=== PATIENT | female | born 1970 | race Caucasian/White ===

== ENCOUNTER 2021-06-19 15:32 | Emergency (ER) | payer BC, OTHER ==
[~2021-06-19] VITALS: Ht 157.5 cm; Wt 56.5 kg
[~2021-06-19 15:32] MED LIST: ALLEGRA 180MG180 MG PO; ALLEGRA ODT30 MG PO; ASTELIN NASAL S34 ML; CLARITIN 1010 MG/TAB PO; PREDNISONE20 MG PO; PRINZIDE 12.5 M1 TA1 PO; QBRELIS1 MG/1 ML PO; SINGULAIR 110 MG/TAB PO; VALTREX 50500 MG/TAB PO; ZOFRAN ODT4 MG PO
[2021-06-19 15:36] VITALS: TEMP 97.9
[2021-06-19 16:28] LABS: ALANINE AMINOTRANSFERASE 21 U/L (0-55); ALBUMIN 3.7 gm/dL (3.5-5.0); ALKALINE PHOSPHATASE 64 U/L (0-750); ANION GAP 11 mmol/L; AST,SGOT 22 U/L (5-34); BILIRUBIN,TOTAL 0.4 mg/dL (0.2-1.2); BLOOD UREA NITROGEN 13 mg/dL (7-19); CALCIUM 8.7 mg/dL (8.4-10.2); CARBON DIOXIDE 24 mEq/L (22-29); CHLORIDE 106 mmol/L (98-107); CREATININE, serum 0.65 mg/dL (0.57-1.11); GLUCOSE 106 mg/dL (70-99); POTASSIUM 3.2 mmol/L (3.5-4.5); SODIUM 141 mmol/L (136-145)
[2021-06-19 16:34] LABS: TROPONIN-I < 0.010 ng/mL (0.00-0.033)
[2021-06-19 17:05] LABS: COLLECTION METHOD CLEAN CATCH
[2021-06-19 17:14] LABS: BASO % 0.4 % (0.0-2.0); EOS # 0.1 (0.0-0.7); EOS % 0.7 % (0-4.0); GRAN # 4.9 (1.4-6.5); GRAN % 57.7 % (42.2-75.2); HEMATOCRIT 37.2 % (37.0-47.0); HEMOGLOBIN 12.3 g/dl (12.5-16.0); LYMPH # 2.9 (1.2-3.4); LYMPH % 33.9 % (20.0-51.0); MEAN CELL VOLUME 87 fl (80.0-100.0); MEAN CORPUSCULAR HEMOGLOBIN 29 pg (27.0-31.0); MEAN CORPUSCULAR HGB CONC 33 g/dl (33.0-37.0); MEAN PLATELET VOLUME 10.5 fl (7.4-10.4); MONO # 0.6 (0.1-0.6); MONO % 6.9 % (1.7-9.3); PLATELET COUNT 375 K/mm3 (130-400); RED BLOOD COUNT 4.29 M/mm3 (4.10-5.30); REDCELL DISTRIBUTION WIDTH-CV 13.3 % (11.5-14.5)
[2021-06-19 17:14] LABS: MUCOUS Present /lpf; PH 7 (5-8); SQUAMOUS EPITHELIAL 0-2 /hpf; URINE APPEARANCE Clear; URINE BACTERIA None Seen /hpf; URINE BILIRUBIN Negative (NEGATIVE); URINE BLOOD 1+ (NEGATIVE); URINE COLOR Straw; URINE GLUCOSE Negative (NEGATIVE); URINE KETONE Negative (NEGATIVE); URINE LEUKOCYTE ESTERASE Negative (NEGATIVE); URINE NITRATE Negative (NEGATIVE); URINE PROTEIN(semi-quant) Negative (NEGATIVE); URINE UROBILINOGEN Negative (NEGATIVE)
[2021-06-19] MEDS ORDERED: K-DUR20 MEQ PO (17:49)
[2021-06-19 18:27] VITALS: BP 112/71; PULSE 60
== END 2021-06-19 18:29 | disposition home or self-care (01) ==
LOC: COL.ER 15:32
PROVIDERS: Nurse Practitioner Primary Care
DX: E87.6 Hypokalemia (principal); I10 Essential (primary) hypertension; G51.0 Bell's palsy; Z79.899 Other long term (current) drug therapy
CPT/HCPCS: J7030